=== PATIENT | male | born 1940 | race African-American/Black ===

== ENCOUNTER 2018-10-04 10:23 | Day surgery (SDC) | payer OTHER ==
[2018-10-03 15:55] VITALS: BMI 23.1
[2018-10-04] MEDS ORDERED: MIDAZOLAM HCL 2 MG/2 ML SINGLE DOSE VIAL ONE (13:35)
[2018-10-04] MEDS ORDERED: ONDANSETRON 4 MG/2 ML VIAL IVPUSH PRN (14:17)
[2018-10-04] MEDS ORDERED: oxyCODONE HCL 5 MG TABLET PO PRN ×2 (14:17→14:39)
[2018-10-04] MEDS ORDERED: LACTATED RINGERS SOLUTION 1,000 ML IV SCH (14:30)
--- NOTE | 2018-10-04 14:39 | OP ---
Operative Note - Note: Operative Date: 10/04/18 Pre-Operative Diagnosis: BPH/retention Operation: BIPOLAR TURP Post-Operative Diagnosis: Same as Pre-op Surgeon: Kem De Paz Anesthesia: General Specimens Removed: prostate chips Operative Report Dictated: Yes
[2018-10-04] MEDS ORDERED: DEXTROSE 5%-0.45% SALINE 1,000 ML IV SCH (14:45)
--- NOTE | 2018-10-04 16:05 | OP ---
DATE OF OPERATION: 10/04/2018 PREOPERATIVE DIAGNOSES: Benign prostatic hypertrophy and urinary retention. POSTOPERATIVE DIAGNOSES: Benign prostatic hypertrophy and urinary retention. PROCEDURE: Cystoscopy, bipolar transurethral resection of the prostate. SURGEON: Terrell Rodriguez MD INDICATION: Patient is a 77-year-old male with a history of BPH status post TURP in the past for retention, now with persistent retention, would like to undergo repeat TURP. Understood the risks of bleeding, infection, impotence, incontinence, and potential need for additional procedure, potential injury to adjacent organs and potential for persistent retention. DESCRIPTION OF PROCEDURE: After informed consent was obtained, the patient was taken to the OR and placed supine on the operating table. After cardiac monitoring administered and general anesthesia established, he was prepped and draped in the dorsal lithotomy position. The 26-sheath resectoscope with visual obturator was inserted into the urethra without difficulty. Anterior urethra was normal. The prostatic urethra was partially occlusive with lateral lobe tissue. The bladder was visualized. There was a large diverticulum in the bladder; otherwise, no tumors or stones. With the resector loop, the lateral tissue was resected circumferentially to the level of the verumontanum, until a wide-open channel was created. All bleeding sites were all cauterized. Prostate chips were then removed. With the resectoscope situated just past the verumontanum, a wide-open channel was seen going into the bladder. Resectoscope was then removed, and a 24-Polish 3-way Hicks was then placed to straight drainage. [place]-tinged urine retrieved. Patient was awoken from anesthesia and transferred to Recovery in stable condition. There were no complications. Estimated blood loss was minimal. TERRELL RODRIGUEZ M.D. [id number]
[2018-10-04 18:23] VITALS: BP 140/70; PULSE 60; TEMP 97.6
--- NOTE | 2018-10-08 17:45 | PATH ---
Surgical Pathology Report Patient Name: SAUL RABAGO [facility]. Rec. #: [id number] /Age/Gender: 1940 (Age: 77) / M Account: [id number] Location: [facility] SUR[facility]ICAL Taken: 10/04/2018 Received: 10/05/2018 Reported: 10/08/2018 Physicians: Kem De Paz M.D. Specimen(s) Received PROSTATE CHIPS Clinical History Enlarged prostate Final Diagnosis PROSTATE TISSUE, TRANSURETHRAL RESECTION OF PROSTATE: BENIGN PROSTATE TISSUE WITH GLANDULAR AND STROMAL HYPERPLASIA, ACUTE AND CHRONIC PROSTATITIS. ADJACENT UROTHELIAL MUCOSA WITH ACUTE AND CHRONIC INFLAMMATION. Electronically Signed Sarai Bhardwaj M.D. Gross Description Received in formalin labeled "prostate tissue," is a 3 g, 4.5 x 4.0 x 0.6 cm aggregate of pugh, irregular, firm to rubbery portions of tissue, consistent with prostate chips. The specimen is submitted in toto in 5 cassettes. 10/05/2018 saudi10/05/2018
== END 2018-10-04 17:35 | disposition home or self-care (01) ==
LOC: JASU-SURG 10:23
PROVIDERS: ATTEND Urology
PROC: 0VB08ZZ Excision of Prostate, Via Natural or Artificial Opening Endoscopic (ICD-10-PCS; principal; 2018-10-04 13:00)
DX: N40.1 Benign prostatic hyperplasia with lower urinary tract symptoms (principal); R33.9 Retention of urine, unspecified
CPT/HCPCS: 88305-TC; 94760